=== PATIENT | female | born 1990 | race Hispanic/Latino ===

== ENCOUNTER 2025-04-28 20:07 | Emergency (ER) | payer BC ==
[2025-04-28] MEDS ORDERED: Cyclobenzaprine 10 MG TAB ONE (20:32)
[2025-04-28] MEDS ORDERED: Acetaminophen/Codeine 30-300mg Tablet ONE (20:32)
== END 2025-04-28 22:33 | disposition home or self-care (01) ==
LOC: CSHERS 20:07
DX: O9A.213 Injury, poisoning and certain other consequences of external causes complicating pregnancy, third trimester (principal); S60.221A Contusion of right hand, initial encounter; O10.913 Unspecified pre-existing hypertension complicating pregnancy, third trimester; O09.513 Supervision of elderly primigravida, third trimester; Z3A.31 31 weeks gestation of pregnancy; Z79.82 Long term (current) use of aspirin; W19.XXXA Unspecified fall, initial encounter
CPT/HCPCS: 99283